=== PATIENT | male | born 1940 | race Caucasian/White ===

== ENCOUNTER 2016-12-12 11:43 | Emergency (ER) | payer SELFPAY ==
[2016-12-12 11:51] VITALS: BMI 28.0
--- NOTE | 2016-12-12 12:44 | PDOC ---
History of Present Illness - General Chief Complaint: Edema Stated Complaint: ABSCESS BOIL Time Seen by Provider: 12/12/16 12:02 - History of Present Illness Initial Comments: 12/12/16 13:31 Patient is a 76 year old male with a history of HTN who presents with a rash and right lower extremity edema. Patient reports a 2 week puritic rash beginning on his legs and spreading to the rest of his body. The patient denies any new detergents or sick contacts. He lives with is and daughter' s family and reports that no other person in the house has the rash. He does endorse recent travel to [place] mid-October. The patient was originally seen in fast track but was sent to the main ED over concerns for his lower extremity edema. He reports having intermittent right leg swelling over the past year worse in the morning. He denies any SOB, chest pain, nausea, vomiting, or abdominal pain. He does endorse subjective fevers. Past History - Past Medical History Allergies/Adverse Reactions: Allergies Allergy/AdvReac Type Severity Reaction Status Date / Time No Known Allergies Allergy Verified 12/12/16 11:52 Home Medications: Ambulatory Orders Clindamycin [Cleocin -] 300 mg PO BID #14 capsule 12/12/16 Other medical history: ANEURYSM BRAIN - Psycho/Social/Smoking Cessation Hx Suicidal Ideation: No Smoking History: Former smoker Have you smoked in the past 12 months: No If you are a former smoker, when did you quit?: 30 YEARS AGO Information on smoking cessation initiated: No Hx Alcohol Use: No Drug/Substance Use Hx: No Substance Use Type: None Review of Systems - Review of Systems Constitutional: No: Chills, Fever Respiratory: No: Cough, Shortness of Breath, Wheezing Cardiac (ROS): No: Chest Pain, Palpitations ABD/GI: No: Constipated, Diarrhea, Nausea, Vomiting : No: Burning, Dysuria Integumentary: Yes: Rash Neurological: No: Headache, Tingling *Physical Exam - Vital Signs Last Vital Signs Temp Pulse Resp BP Pulse Ox 98.4 F 68 16 142/80 97 12/12/16 11:45 12/12/16 11:45 12/12/16 11:45 12/12/16 11:45 12/12/16 11:45 - Physical Exam Comments: 12/12/16 13:46 General Appearance: Nourished. No Apparent Distress HEENT: No Pharyngeal Erythema, Tonsillar Exudate, Tonsillar Erythema Respiratory/Chest: Lungs Clear, Normal Breath Sounds. No Crackles, Rales, Rhonchi, Wheezing Cardiovascular: Regular Rhythm, Regular Rate. No Murmur, Gallop/S3, Gallop/S4 Gastrointestinal/Abdominal: Normal Bowel Sounds, Soft. No Guarding, Rebound, Tenderness Extremity: Normal Capillary Refill, 2+ pitting edema in the right calf with surround erythema. 2+ pedal edema bilaterally Integumentary: Normal Color, Dry, Warm, Erythemitis papular rash distrubted on the legs, arms, chest, and back Neurologic: Fully Oriented, Alert, Normal Mood/Affect, Normal Response ED Treatment Course - LABORATORY CBC & Chemistry Diagram: 12/12/16 13:50 12/12/16 13:50 Medical Decision Making - Medical Decision Making 12/12/16 13:48 Patient is a 76 year old male with a history of HTN who presents with rash and right leg edema. Given the patient's history of edema for a year and physical exam, we will obtain a US to evaluate for DVT. The patient has erythema surrounding the edema as well concerning for cellulitis. We will obtain a set of basic labs including a cbc and cmp to evaluate for infectious etiologies. Given the patient's history, his rash is less likely due to a contact dermatitis , however still possible. There are no other sick contacts and the rest of his family doesn't have the rash either. 12/12/16 19:14 Patient's labs show a WBC elevated to 12.1. Otherwise, the patient's labs are unremarkable. DVT US is read as normal with no DVT in the right leg. Patient' s tib/fib radiograph read as no acute fracture by the radiologist. Discussed results with the patient and recommended he be seen in the ED in 2 days for a wound check. We will discharge him on 7 days of clindamycin for cellulitis. Patient is agreeable to the plan. *DC/Admit/Observation/Transfer Diagnosis at time of Disposition: Cellulitis Qualifiers: Site of cellulitis: extremity Site of cellulitis of extremity: lower extremity Laterality: right Qualified Code(s): L03.115 - Cellulitis of right lower limb - Discharge Dispostion Disposition: HOME Condition at time of disposition: Improved - Prescriptions Prescriptions: Clindamycin [Cleocin -] 300 mg PO BID #14 capsule - Patient Instructions Printed Discharge Instructions: DI for Cellulitis -- Adult Additional Instructions: Por favor volver a ER si tiene respecto a o que empeora los sntomas incluyendo fiebre, escalofros o dolor de pecho alexander. Por favor volver al ER en 2 waller para tener tu celulitis de pierna derecha inspeccionada. Por favor tome la medicina que prescribe llamada clindamicina dos veces al da geoffrey 7 waller. Por favor llame a seguir con auguste proveedor de cuidado primario para discutir auguste visita ER. - Attestations Physician Attestion: 12/12/16 18:31 I, Dr. Martin Villalobos, attest that this document has been prepared under my direction and personally reviewed by me in its entirety. I further attest, that it accurately reflects all work, treatment, procedures and medical decision -making performed by me.
--- NOTE | 2016-12-12 13:18 | PDOC ---
Attending Attestation - Resident Resident Name: Martin Villalobos - ED Attending Attestation I have performed the following: I have examined & evaluated the patient, The case was reviewed & discussed with the resident, I agree w/resident's findings & plan, Exceptions are as noted - HPI HPI: 12/12/16 13:17 Agree with the resident's HPI as documented in the electronic medical record. - Physicial Exam PE: 12/12/16 13:17 Agree with the resident's physical examination as documented in the electronic medical record. - Medical Decision Making 12/12/16 13:17 76-year-old male with no reported past medical history presents the emergency department with one week history of pruritic generalized rash as well as chronic swelling of his right lower extremity. He is afebrile. Differential diagnosis includes but is not limited to: DVT, cellulitis, contact dermatitis, non-specific skin eruption, ALLERGIC reaction. Plan: 1. Labs 2. Plain films of right lower extremity 3. Right Lower extremity ultrasound to rule out DVT 4. Observe and reevaluate
[2016-12-12 14:04] LABS: BASOPHIL 0.9 % (0-2.0); EOSINOPHIL 11.5 % (0-4.5); MCH 30.7 pg (25.7-33.7); MCHC 33.5 g/dl (32.0-35.9); MEAN CELL VOLUME 91.4 fl (80-96); MEAN PLT VOLUME 10.9 fl (7.5-11.1); NEUTROPHILS 64.7 % (42.8-82.8); PLATELET COUNT 188 K/MM3 (134-434); RDW 13.7 % (11.9-15.9); WHITE BLOOD COUNT 12.6 K/mm3 (4.0-10.0)
[2016-12-12 14:28] LABS: ALBUMIN 3.4 g/dl (3.4-5.0); ALK PHOS 121 U/L (45-117); ANION GAP 8 (8-16); BILIRUBIN,TOTAL 0.6 mg/dL (0.2-1.0); CALCIUM 8.3 mg/dL (8.5-10.1); CO2 24 mmol/L (21-32); CREATININE 0.7 mg/dL (0.7-1.3); GLUCOSE,RANDOM 80 mg/dL (74-106); SGOT/AST 21 U/L (15-37); SGPT/ALT 29 U/L (12-78); TOT PROT 7.8 g/dl (6.4-8.2)
[2016-12-12] MEDS ORDERED: predniSONE 20 MG TABLET (UD) PO ONE (14:40)
[2016-12-12] MEDS ORDERED: CLINDAMYCIN IVPB 300 MG in DEXTROSE 5%-WATER - 48 ML IVPB ONE (14:40)
[2016-12-12] MEDS ORDERED: predniSONE 20 MG TABLET (UD) ONE (14:50)
[2016-12-12] MEDS ORDERED: CLINDAMYCIN PHOSPHATE 600 MG/4 ML VIAL ONE (14:51)
[2016-12-12 15:28] VITALS: BP 167/90; PULSE 87; TEMP 98.2
== END 2016-12-12 20:07 | disposition home or self-care (01) ==
LOC: JER 11:43 → JERFT 11:43 → JER 20:07
DX: L03.115 Cellulitis of right lower limb (principal); I10 Essential (primary) hypertension
CPT/HCPCS: 36415; 73590-TC-RT; 73610-TC-RT; 73630-TC-RT; 80053; 85025; 93971-TC; 99283-25

== ENCOUNTER 2016-12-14 11:29 | Emergency (ER) | payer SELFPAY ==
[2016-12-14 11:34] VITALS: BP 123/63; PULSE 55; TEMP 98; BMI 28.0
--- NOTE | 2016-12-14 12:04 | PDOC ---
Suture Removal/Wound Check HPI - History of Present Illness Chief Complaint: Revisit,Wound Recheck Stated Complaint: FOLLOW UP Time Seen by Provider: 12/14/16 11:43 History Source: Yes: Patient Exam Limitations: Yes: Language Barrier (Ade, the RN, provided [place] translation) Treated at: [facility] Date of Last ED visit: 12/12/16 - Onset of Previous Treatment Comment:: CHIEF COMPLAINT: 76 y/o afebrile male with PMH HTN here for wound check of right lower leg. HISTORY OF PRESENT ILLNESS: The patient was seen on 12/12/16 for rash and right leg edema. He was diagnosed with cellulitis as DVT study was negative. He was discharged to home on Clindamycin and told to return to the ER in 2 days for wound check. The patient states the leg is much better and denies f/c, and all other complaints. Vital signs on arrival are within normal limits. REVIEW OF SYSTEMS: GENERAL/CONSTITUTIONAL: No fever/chills. No weakness. No weight change. CARDIOVASCULAR: No chest pain or shortness of breath. MUSCULOSKELETAL: +swelling to lower extremities. No neck or back pain. SKIN: No rash or easy bruising. NEUROLOGIC: No headache, vertigo, loss of consciousness, or loss of sensation. PHYSICAL EXAM: GENERAL_APPEARANCE: alert, cooperative, no obvious discomfort. Pt is ambulatory. MENTAL_STATUS: speech clear, oriented X 3, responds appropriately to questions. NEURO: motor intact and sensory intact in injured extremity. EXTREMITIES: 2+ pitting edema b/l LE to mid-tibia. Some erythema to right LE. No weeping of fluid. SKIN: warm, dry, good color. Past History - Past Medical History Allergies/Adverse Reactions: Allergies No Known Allergies Allergy (Verified 12/14/16 11:34) Home Medications: Ambulatory Orders Clindamycin [Cleocin -] 300 mg PO BID #14 capsule 12/12/16 - Social History Smoking Status: Never smoked Medical Decision Making - Medical Decision Making A/P: 76 y/o male here for wound check of right lower extremity states it looks much better after 2 days of clinda. The leg looks well and is not weeping fluid. Encouraged the patient to continue taking Clinda as prescribed and return to the ER with any worsening or concerning symptoms. The patient verbalizes understanding of all instructions, has no further questions and is awaiting discharge. *DC/Admit/Observation/Transfer Diagnosis at time of Disposition: Visit for wound check - Discharge Dispostion Disposition: HOME Condition at time of disposition: Good - Patient Instructions Printed Discharge Instructions: DI for Wound Infection Additional Instructions: Discharge Instructions: -Continue taking antibiotics as prescribed -Return to the ER with any worsening of symptoms, including fever Instrucciones de rishi: -Continuar tomando antibiticos segn lo prescrito -Vuelva a la oneyda de emergencia con cualquier empeoramiento de los sntomas, incluyendo fijemma Print Language: MONGOLIAN
== END 2016-12-14 12:46 | disposition home or self-care (01) ==
LOC: JER 11:29
DX: Z48.00 Encounter for change or removal of nonsurgical wound dressing (principal)
CPT/HCPCS: 99281-25